=== PATIENT | female | born 1955 | race Caucasian/White ===

== ENCOUNTER 2021-02-02 19:27 | Emergency (ER) | payer OTHER ==
[~2021-02-02] VITALS: Ht 160 cm; Wt 147.4 kg
[2021-02-02 20:57] LABS: ABSOLUTE LYMPHOCYTES 0.8 thou/uL (0.8-5.3); ABSOLUTE MONOCYTES 0.2 thou/uL (0.0-1.2); ABSOLUTE NEUTROPHILS 1.7 thou/uL (1.6-8.1); BASOPHILS 0.4 %; EOSINOPHILS 0.2 %; HEMATOCRIT 41.3 % (37.0-47.0); HEMOGLOBIN 13.9 gm/dL (12.0-15.0); MCH 27.2 pg (26.0-34.0); MCHC 33.7 g/dL (28.0-37.0); MCV 80.6 fL (80.0-100.0); MONOCYTES 8.2 %; MPV 8.2 fl. (7.2-11.1); NUCLEATED RBCS 0 /100WBC; PLATELET COUNT* 114 thou/uL (150-400); POLYS 63.2 %; RBC 5.12 mil/uL (4.20-5.00); RDW-CV 15.2 % (10.5-14.5); WBC 2.7 thou/uL (4.0-11.0)
[2021-02-02 21:05] LABS: CALCIUM 7.7 mg/dL (8.5-10.1); CREATININE 0.7 mg/dL (0.6-1.3); POTASSIUM 3.9 mmol/L (3.5-5.1)
[2021-02-02 21:10] LABS: ALBUMIN 3.6 g/dL (3.4-5.0); TOTAL BILIRUBIN 0.4 mg/dL (<0.1-1.0); TOTAL PROTEIN 7.3 g/dL (6.4-8.2)
[2021-02-02 22:05] VITALS: BP 149/73
--- NOTE | 2021-02-05 13:35 | EKG ---
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: : [id number] Requested By: Lexis Rios Order Number: [id number] Michael MD: Dmitry Gonzalez Measurements Intervals [employer] Rate: 100 P: 54 FL: 151 QRS: -25 QRSD: 133 T: 36 QT: 371 QTc: 479 Interpretive Statements Sinus tachycardia Right bundle branch block Baseline wander in lead(s) V6 No previous ECG available for comparison Electronically Signed On 02-05-2021 13:35:44 CDT by Dmitry Gonzalez [email or web address] <ELECTRONICALLY SIGNED> By: Dmitry Gonzalez MD, [facility] 02/05/21 1335 23 23 Dmitry Gonzalez MD, [facility] /EPI
== END 2021-02-02 22:05 | disposition home or self-care (01) ==
LOC: M.ERS 19:27
PROVIDERS: Personal Emergency Response Attendant
DX: U07.1 COVID-19 (principal); E86.0 Dehydration; I10 Essential (primary) hypertension; E66.01 Morbid (severe) obesity due to excess calories